=== PATIENT | female | born 2000 | race Caucasian/White ===

== ENCOUNTER 2024-06-16 09:31 | Outpatient (CLI) | payer OTHER, SELFPAY | END 2024-06-16 09:32 | disposition home or self-care (01) | LOC: CT 09:31 → EDBD 10:00 | DX: K01.1 Impacted teeth (principal); J35.3 Hypertrophy of tonsils with hypertrophy of adenoids; M89.9 Disorder of bone, unspecified | CPT/HCPCS: 70486 ==